=== PATIENT | male | born 1980 | race Caucasian/White ===

== ENCOUNTER 2025-07-24 12:31 | Emergency (ER) | payer MEDICAID ==
[~2025-07-24] VITALS: Ht 188 cm; Wt 84.1 kg
[~2025-07-24 12:31] MED LIST: DOXY-224 PO; HYDR25TA90 PO
[2025-07-24] MEDS ORDERED: SULF1TAB49 PO (14:32)
--- NOTE | 2025-07-24 14:32 | Physician Documentation ---
History of Present Illness ~ Chief Complaint: Wound Re-Check Stated Complaint: EYE SWELLING Time Seen by MD: 14:28 Mode of Arrival: Ambulatory HPI Patient is a 45-year-old male that presents to the emergency department for re- evaluation of a wound to his right forehead just superior to his right eye above the bra line. Patient reports he spent 2 days in the hospital after the suture for infectious complications. Patient reports that the swelling has gone down significantly since that time however yesterday he reports being very upset due to a break up drinking I am wearing a hat his forehead was very sweaty today he has a little bit of swelling over the site and medially between his 2 eyes. Denies any fevers any drainage there is no significant area of of erythema at this time. Tetanus within 5 years?: No Medication Reconciliation Allergies: Coded Allergies: No Known Allergies (Unverified , 07/20/25) Scheduled Doxycycline Hyclate (Doxycycline Hyclate), 1 CAP PO Q12H Hydralazine Hcl* (Apresoline*), 1 TAB PO Q8H Sulfamethoxazole/Trimethoprim (Bactrim Ds Tablet), 1 TAB PO Q12H Discontinued Medications Home Med List (No Home Medications), (Reported) Past Medical History Patient History: Patient reports no known family medical history. Review of Systems ROS As stated above in the HPI, otherwise all systems are reviewed and negative. Physical Exam Vital Signs: Temperature: 98.0, Source: Temporal, Heart Rate: 89, Respiratory Rate: 16, BP: 176/121, Pulse Oximetry: 95, Weight: 84.090 Oxygen Flow Rate: 0 General Appearance VITALS: Reviewed and as above. GENERAL: Alert, no apparent distress. HEENT: Normocephalic, atraumatic, PERRL, EOMI, dry mucosa, no erythema RESPIRATORY: Lungs clear, normal breath sounds, no respiratory distress. CHEST: No accessory muscle use, no retractions CV: Regular rate, rhythm, no edema, no murmur, No: JVD GI: Soft, non-tender, bowels sounds present, no rebound, guarding, or rigidity BACK: No CVA tenderness, or swelling MUSCULOSKELETAL No deformities, no edema SKIN: Warm and dry, mild erythema around laceration site, swelling at the site and medially to the laceration. Patient reports this is significantly improved from initial presentation several days ago. NEURO: Oriented x4, No motor or sensory deficit PSYCH: Normal mood and affect, no agitation Progress Results/Orders Results/Orders Completed Orders - ZAINAB AGUERO MACHINE TECH Sulfamethox/Trimetho. Ds Tab (Septra Ds (07/24/25 14:30) Vital Signs 07/24/25 07/24/25 07/24/25 12:35 12:48 13:37 Temp 98.0 Pulse 98 89 Resp 16 16 B/P (MAP) 199/127 176/121 (139) Pulse Ox 99 95 O2 Flow Rate 0 Medical Decision Making Findings This patient presents with initial presentation of local erythema, warmth, swelling concerning for complication of a sutured laceration. Sensitivity/pain to light touch around the erythematous area. No lymphangitic spread visible and no fluid pockets or fluctuance concerning for abscess note. No immune compromise, bullae, pain out of proportion, or rapid progression concerning for necrotizing fasciitis. Patient to be discharged home with patient to take in addition to the existing doxycycline prescription he was provided on the . with follow up with their PMD. Follow up with the primary care provider. Please return to the emergency department if you have any worsening or recurrent symptoms or any additional concerning symptoms that we discussed here today i.e. drainage from the wound increased redness increased swelling fever nausea vomiting or any other concerning symptoms. Differential Dx:Considerations: Include: Abscess, Cellulitis, Dressing change, Healing wound, Other Departure Disposition: 01 HOME / SELF CARE / HOMELESS Impression: Primary Impression: Wound Condition: Stable Discharge Instructions: Laceration Care, Adult, Sutured Wound Care Additional Instructions: This patient presents with initial presentation of local erythema, warmth, swell ing concerning for complication of a sutured laceration. Sensitivity/pain to light touch around the erythematous area. No lymphangitic spread visible and no fluid pockets or fluctuance concerning for abscess note. No immune compromise, bullae, pain out of proportion, or rapid progression concerning for necrotizing fasciitis. Patient to be discharged home with patient to take in addition to the existing doxycycline prescription he was provided on the . with follow up with their PMD. Follow up with the primary care provider. Please return to the emergency department if you have any worsening or recurrent symptoms or any additional concerning symptoms that we discussed here today i.e. drainage from the wound increased redness increased swelling fever nausea vomiting or any other concerning symptoms. Referrals: NO PRIMARY CARE PROVIDER (PCP) Prescriptions Sulfamethoxazole/Trimethoprim (Bactrim Ds Tablet) 800 Mg-160 Mg Tablet 1 TAB PO Q12H for 10 Days, #20 TAB Prov: ZAINAB AGUERO 07/24/25 Education Educated: Patient Educated regarding: treatment, need for follow up Signature Scribe Signature: A Attestation: Scribed for Zainab Aguero by ROSALEE Garcia . 07/24/25 14:40 ZAINAB AGUERO Jul 24, 2025 14:32
[2025-07-24] MEDS: sulfamethoxazole/trimethoprim DS (800/160mg) tablet PO ONE (14:43)
[2025-07-24 14:49] VITALS: BP 181/111; PULSE 78; RESP 16; TEMP 98; O2SAT 100
== END 2025-07-24 14:45 | disposition home or self-care (01) ==
LOC: ER 12:32
DX: S00.80XD Unspecified superficial injury of other part of head, subsequent encounter (principal); Z79.899 Other long term (current) drug therapy; X58.XXXD Exposure to other specified factors, subsequent encounter
CPT/HCPCS: 99284